=== PATIENT | male | born 1945 | race Caucasian/White ===

== ENCOUNTER 2020-06-07 09:53 | Outpatient (REF) | payer MEDICARE, SELFPAY ==
--- NOTE | 2020-06-07 | US_ITS ---
EXAMINATION: ANKLE-BRACHIAL INDICES SINGLE LEVEL PULSE VOLUME RECORDING ARTERIAL DUPLEX BILATERAL LEGS CLINICAL INFORMATION: Peripheral vascular disease. COMPARISON: 05/25/2019 TECHNIQUE: Ankle-brachial indices and PVR at the ankle were obtained. Duplex Doppler of the bilateral lower extremity arterial systems was performed. FINDINGS: RIGHT: Ankle-brachial index: 0.71 PVR: Mildly depressed. Common femoral: PSV 127 cm/s. Biphasic waveform. Deep femoral: PSV 168 cm/s. Biphasic waveform. Proximal superficial femoral: Occluded. Mid superficial femoral: PSV 39 cm/s. Monophasic waveform. Distal superficial femoral: PSV 33 cm/s. Monophasic waveform. Popliteal: PSV 31 cm/s. Monophasic waveform. Posterior tibial artery: PSV 13 cm/s. Monophasic waveform. LEFT: Ankle-brachial index: 0.80 PVR: Mildly depressed. Common femoral: PSV 128 cm/s. Biphasic waveform. Deep femoral: PSV 83 cm/s. Biphasic waveform. Proximal superficial femoral: Occluded. Mid superficial femoral: Occluded. Distal superficial femoral: PSV 42 cm/s. Biphasic waveform. Popliteal: PSV 62 cm/s. Biphasic waveform. Posterior tibial artery: PSV 32 cm/s. Biphasic waveform. US/US arterial duplex LE BI IMPRESSION: The right SFA is occluded proximally and reconstituted in the mid segment with ankle-brachial index of 0.71. The left SFA is occluded proximally and in the mid segment and reconstituted in the distal segment with ankle-brachial index of 0.80.
--- NOTE | 2020-06-07 | US_ITS ---
EXAMINATION: ANKLE-BRACHIAL INDICES SINGLE LEVEL PULSE VOLUME RECORDING ARTERIAL DUPLEX BILATERAL LEGS CLINICAL INFORMATION: Peripheral vascular disease. COMPARISON: 05/25/2019 TECHNIQUE: Ankle-brachial indices and PVR at the ankle were obtained. Duplex Doppler of the bilateral lower extremity arterial systems was performed. FINDINGS: RIGHT: Ankle-brachial index: 0.71 PVR: Mildly depressed. Common femoral: PSV 127 cm/s. Biphasic waveform. Deep femoral: PSV 168 cm/s. Biphasic waveform. Proximal superficial femoral: Occluded. Mid superficial femoral: PSV 39 cm/s. Monophasic waveform. Distal superficial femoral: PSV 33 cm/s. Monophasic waveform. Popliteal: PSV 31 cm/s. Monophasic waveform. Posterior tibial artery: PSV 13 cm/s. Monophasic waveform. LEFT: Ankle-brachial index: 0.80 PVR: Mildly depressed. Common femoral: PSV 128 cm/s. Biphasic waveform. Deep femoral: PSV 83 cm/s. Biphasic waveform. Proximal superficial femoral: Occluded. Mid superficial femoral: Occluded. Distal superficial femoral: PSV 42 cm/s. Biphasic waveform. Popliteal: PSV 62 cm/s. Biphasic waveform. Posterior tibial artery: PSV 32 cm/s. Biphasic waveform. US/US LYN complete IMPRESSION: The right SFA is occluded proximally and reconstituted in the mid segment with ankle-brachial index of 0.71. The left SFA is occluded proximally and in the mid segment and reconstituted in the distal segment with ankle-brachial index of 0.80.
== END 2020-06-07 09:54 | disposition home or self-care (01) ==
LOC: HO.US 09:53
PROVIDERS: Visit Provider Surgery Vascular Surgery
DX: I73.9 Peripheral vascular disease, unspecified (principal)
CPT/HCPCS: 93923; 93925

== ENCOUNTER → 2020-06-23 10:23 | Outpatient (BNVA) | payer MEDICARE, SELFPAY | PROVIDERS: PCP Internal Medicine; Visit Provider Surgery Vascular Surgery | DX: I73.9 Peripheral vascular disease, unspecified (principal) | CPT/HCPCS: Q3014 ==